=== PATIENT | male | born 1970 | race Caucasian/White ===

== ENCOUNTER 2022-06-09 07:08 | Emergency (ER) | payer OTHER ==
[~2022-06-09] VITALS: Ht 160 cm; Wt 76.0 kg
[2022-06-09 07:47] VITALS: BP 146/74
[2022-06-09] MEDS ORDERED: ACETAMINOPHEN 325MG TABLET PO STA (08:17)
[2022-06-09] MEDS ORDERED: DIPHENHYDRAMINE 50MG/ML VIAL IV ONE (08:30)
[2022-06-09] MEDS ORDERED: SODIUM CHLORIDE 0.9% 1,000 ML IV ONE (08:30)
[2022-06-09] MEDS ORDERED: METOCLOPRAMIDE HCL 10MG/2ML VIAL IV ONE (08:30)
[2022-06-09 09:27] LABS: CHLORIDE 97 mEq/L (98-107)
[2022-06-09 09:33] LABS: BASOPHILS % 0.5 % (0.0-2.0); EOSINOPHILS % 0.8 % (0.0-5.0); HEMATOCRIT. 41.3 % (42.0-52.0); HEMOGLOBIN. 13.9 g/dL (14.0-18.0); LYMPHOCYTES % 19.8 % (20.0-50.0); MEAN CORPUSCULAR HEMOGLOBIN 31.6 pg (28.0-32.0); MONOCYTES % 8.7 % (2.0-8.0); NEUTROPHILS % 70.2 % (40.0-76.0); PLATELET 206 x1000/uL (130-400); RED BLOOD CELL COUNT 4.39 mill/uL (4.7-6.1); RED CELL DISTRIBUTION WIDTH 12.8 % (11.6-14.6)
[2022-06-09 09:35] LABS: ETHANOL BLOOD < 10 mg/dL
[2022-06-09 09:39] LABS: CLARITY URINE CLEAR (CLEAR); COLOR URINE YELLOW (YELLOW); KETONES URINE 1+ (NEGATIVE); LEUKOCYTE ESTERASE URINE NEGATIVE (NEGATIVE); NITRITE URINE NEGATIVE (NEGATIVE); OCCULT BLOOD URINE NEGATIVE (NEGATIVE); PH URINE 5.5 (4.5-8.0); PROTEIN URINE NEGATIVE (NEGATIVE); SPECIFIC GRAVITY URINE 1.017 (1.005-1.030)
[2022-06-09 10:02] LABS: *AMPHETAMINES SCREEN URINE NEGATIVE (NEGATIVE); *BARBITURATES SCREEN URINE NEGATIVE (NEGATIVE); *BENZODIAZEPINES SCREEN URINE NEGATIVE (NEGATIVE); *COCAINE SCREEN URINE NEGATIVE (NEGATIVE); CANNABINOID URINE SCREEN NEGATIVE (NEGATIVE); METHADONE URINE SCREEN NEGATIVE (NEGATIVE); OPIATES URINE SCREEN NEGATIVE (NEGATIVE); PHENCYCLIDINE URINE SCREEN NEGATIVE (NEGATIVE)
[2022-06-09] MEDS: THIAMINE HCL 100MG TABLET PO NR ×2 (11:07→11:10)
[2022-06-09] MEDS ORDERED: THIA250T3 MT (11:29)
[2022-06-09] MEDS ORDERED: METO-293 MT (11:29)
== END 2022-06-09 11:36 | disposition home or self-care (01) ==
LOC: ER 07:08
DX: G44.209 Tension-type headache, unspecified, not intractable (principal); R53.1 Weakness; R74.01 Elevation of levels of liver transaminase levels; E11.9 Type 2 diabetes mellitus without complications; E78.00 Pure hypercholesterolemia, unspecified; I10 Essential (primary) hypertension; F10.20 Alcohol dependence, uncomplicated; Y90.0 Blood alcohol level of less than 20 mg/100 ml; Z87.891 Personal history of nicotine dependence; Z98.890 Other specified postprocedural states
CPT/HCPCS: 36415; 80053; 80305; 80320; 81003; 85025; 96361; 96374; 96375; 99284; J1200; J2765; J7030; G0480

== ENCOUNTER 2022-11-17 09:02 | Emergency (ER) | payer OTHER ==
[~2022-11-17] VITALS: Ht 167.6 cm; Wt 64.0 kg
[~2022-11-17 09:02] MED LIST: METO-293 MT; THIA250T3 MT
[2022-11-17 09:24] VITALS: BP 111/68
[2022-11-17] MEDS ORDERED: ACETAMINOPHEN 325MG TABLET PO ONE (10:45)
[2022-11-17] MEDS ORDERED: DOXYCYCLINE HYCLATE 100MG CAPSULE PO NR (12:00)
[2022-11-17] MEDS ORDERED: AMOXICILLIN/POTASSIUM CLAVULANATE 875/125MG TAB PO NR (12:00)
[2022-11-17] MEDS ORDERED: DOXY100T2 MT (12:17)
[2022-11-17] MEDS ORDERED: AMOX1TAB16 MT (12:17)
== END 2022-11-17 12:31 | disposition home or self-care (01) ==
LOC: ER 09:02
DX: J18.9 Pneumonia, unspecified organism (principal); E11.9 Type 2 diabetes mellitus without complications; I10 Essential (primary) hypertension; E78.00 Pure hypercholesterolemia, unspecified; F31.9 Bipolar disorder, unspecified; Z20.822 Contact with and (suspected) exposure to COVID-19
CPT/HCPCS: 71045; 87426; 87804; 99284; C9803